=== PATIENT | male | born 1995 | race African-American/Black ===

== ENCOUNTER 2016-08-18 08:00 | Emergency (ER) | payer SELFPAY | END 2016-08-18 10:10 | disposition home or self-care (01) | LOC: D.ER 08:00 | DX: J45.901 Unspecified asthma with (acute) exacerbation (principal); Z91.14 Patient's other noncompliance with medication regimen; E03.9 Hypothyroidism, unspecified; H91.90 Unspecified hearing loss, unspecified ear ==